=== PATIENT | female | born 1955 | race Caucasian/White ===

== ENCOUNTER → 2016-11-26 | Outpatient (CLI) | payer OTHER | LOC: FIMAGING 13:01 | PROVIDERS: ATTEND Internal Medicine Rheumatology | DX: M06.841 Other specified rheumatoid arthritis, right hand (principal); M06.842 Other specified rheumatoid arthritis, left hand; M06.871 Other specified rheumatoid arthritis, right ankle and foot; M06.872 Other specified rheumatoid arthritis, left ankle and foot ==

== ENCOUNTER → 2018-09-01 | Outpatient (CLI) | payer OTHER | LOC: FIMAGING 11:52 | PROVIDERS: ATTEND Internal Medicine | DX: Z12.31 Encounter for screening mammogram for malignant neoplasm of breast (principal) ==